=== PATIENT | female | born 1940 | race Caucasian/White ===

== ENCOUNTER 2020-07-17 12:57 | Outpatient (REF) | payer OTHER, SELFPAY ==
--- NOTE | 2020-07-17 15:23 | MHC.AU.P13 ---
Adult Audiological Evaluation Date of Visit: 07/17/20 Reason for Appointment: Audiological evaluation due to decreased hearing. Does patient feel they have a hearing loss?: Yes If Yes, Which Ear?: Both Ears When Was Hearing Difficulty First Noticed?: Over the past few months Has hearing been tested previously?: No Hearing Handicap Inventory: HHIE SCORE: 12 Based on HHIE score, patient has: Mild to moderate perceived hearing handicap Medical History: Medical History (Other): Dementia past 3-4 years, left hip surgery 06/2019 Otoscopy: Right Ear: Unremarkable Left Ear: Unremarkable Tympanometry: Right Ear: Normal Middle Ear System (Type A) Left Ear: Reduced Middle Ear Compliance (Type As) Hearing Evaluation: Transducer(s) Used: Insert Earphones Method: Conventional Audiometry Stimuli Used: Pure Tones Right Ear: Description of Hearing: Mild sensorineural hearing loss from 250-2000 Hz, sloping to a moderate sensorineural hearing loss at 3000 Hz, and a moderately severe sensorineural hearing loss from 7999-5658 Hz. Left Ear: Description of Hearing: Mild sensorineural hearing loss from 250-1000 Hz, sloping to a moderate sensorineural hearing loss from 3251-3616 Hz, and a moderately severe sensorineural hearing loss from 0287-7542 Hz. Speech Recognition Threshold (SRT): Method Used: Monitored Live Voice Stimuli Used: Spondee Words Right Ear: 30 dBHL Left Ear: 35 dBHL Word Discrimination: Method: Monitored Live Voice Word Lists Used: NU-6 Right Ear: 76% at 75 dBHL Left Ear: 92% at 75 dBHL Recommendations: Recommendations: Audiological re-evaluation in one year. Trial with amplification is recommended. Recommendations (Other): Discussed results with patient and her daughter. Advised that Ms. Pittman is a candidate for binaural amplification. Patient and daughter decided that they are not ready to pursue hearing aids at this time. They are able to effectively communicate without difficulty most of the time. Counseled on strategies for better communication with a hearing loss. Diagnosis: Primary Diagnosis: H90.3 Bilateral Sensorineural Hearing Loss Services Performed: Services Performed: Comprehensive Audiological Evaluation (CPT 45618) Tympanometry (CPT 79824) Signature: Provider: Malia Cat, CCC-A
== END 2020-07-17 12:58 | disposition home or self-care (01) ==
LOC: HO.SH 12:57
PROVIDERS: PCP Internal Medicine; Referring Provider Internal Medicine; Visit Provider Internal Medicine
DX: H90.3 Sensorineural hearing loss, bilateral (principal)
CPT/HCPCS: 92557; 92567